=== PATIENT | male | born 1965 | race Caucasian/White ===

== ENCOUNTER → 2024-04-26 | Outpatient (CLI) | payer MEDICARE, SELFPAY ==
--- NOTE | 2024-04-26 13:31 | XR_ITS ---
Examination: Right knee 2 views Technique one AP lateral right knee 2 views Exam date and time: April 26, 2024 1339 hours INDICATIONS: Right knee pain beginning 2 months ago FINDINGS: Significant osteopenia Advanced narrowing medial joint space Significant osteoarthritis lateral patellofemoral joints Small knee effusion IMPRESSION: No fracture Advanced tricompartment osteoarthritis
[2024-04-26 15:55] LABS: Uric Acid 4.5 mg/dL (3.7-9.2)
== END | disposition home or self-care (01) ==
LOC: CDIM 13:20 → COPL 13:46
PROVIDERS: Referring Provider Nurse Practitioner Family; Visit Provider Radiology Diagnostic Radiology
DX: M17.11 Unilateral primary osteoarthritis, right knee (principal); M25.561 Pain in right knee
CPT/HCPCS: 36415; 73560; 84550